=== PATIENT | female | born 1945 | race Caucasian/White ===

== ENCOUNTER 2017-01-02 18:26 | Inpatient (IN) | payer OTHER ==
[~2017-01-02] VITALS: Ht 160 cm; Wt 91.6 kg
--- NOTE | ~2017-01-02 | ST ---
[place], [place] EXERCISE STRESS TEST REPORT NAME: GENARO JOE [facility] #: [id number] UNIT #: [id number] ROOM: 512 DOCTOR: DIOGO TOLENTINO MD BIRTHDATE: [birth year] DOS: 01/03/2017 LEXISCAN STRESS EKG REPORT REFERRING PHYSICIAN: Dr. Harper. INDICATION: Chest pain. The patient underwent standard protocol Lexiscan stress. The patient's baseline EKG showed normal sinus rhythm with nonspecific ST-T wave changes. The patient's baseline heart rate is 63 beats per minute with a blood pressure of 128/64. The patient's peak heart rate was 79 with a blood pressure of 90/50. The patient was noted to have no anginal symptoms. The patient had rare PVCs in regard to arrhythmias and no ST changes were noted. SUMMARY OF FINDINGS: 1. Unremarkable Lexiscan stress. 2. Please see separate report for perfusion scan results. DIOGO TOLENTINO MD CM:STRESS:EXERCISE STRESS TEST REPORT [id number] DIOGO TOLENTINO MD
[~2017-01-02 18:26] MED LIST: ASPIR-TRIN325 MG PO; ASPIRIN81 M1 PO; CITALOPRAM20 MG PO; COREG12.5 M1 PO; DOXYCYCLINE100 MG PO; FLONASE ALLERG9.9 ML NAS; LISINOPRIL5 MG PO; NEURONTIN100 MG PO; NEURONTIN300 MG PO; NORCO 5-325 TA1 EACH PO; OMEPRAZOLE20 M2 PO; PREDNISONE10 MG PO; SIMVASTATIN40 MG PO; SYMBICORT1 AE1 PO; SYNTHROID25 MCG PO; TYLENOL325 M1 PO; VENTOLIN H0.09 MG/AC INH; VICODIN 5-3001 EACH PO; ZITHROMAX250 MG PO
[2017-01-02 19:00] LABS: BASO % 0.4 % (0.0-1.0); EOS # 0.3 10*3/uL (0.0-0.4); EOS % 4.7 % (1.0-4.0); HEMATOCRIT 38.9 % (37.0-47.0); HEMOGLOBIN 12.8 g/dl (12.0-16.0); LYMPH # 2.1 10*3/uL (1.3-4.4); LYMPH % 39.5 % (27.0-41.0); MEAN CELL VOLUME 89.6 fl (81.0-99.0); MEAN CORPUSCULAR HGB 29.5 pg (27.0-31.0); MEAN CORPUSCULAR HGB CONC 32.9 g/dl (33.0-37.0); MEAN PLATELET VOLUME 9.2 fl (9.6-12.3); MONO # 0.4 10*3/uL (0.1-1.0); NEUT # 2.6 10*3/uL (2.3-7.9); NEUT % 48.2 % (47.0-73.0); PLATELET COUNT AUTOMATED 138 10*3/uL (130-400); RED BLOOD COUNT 4.34 10*6/uL (4.10-5.10); RED CELL DISTRI WIDTH 12.7 % (0-14.5); WHITE BLOOD COUNT 5.3 10*3/uL (4.8-10.8)
[2017-01-02 19:04] VITALS: BP 139/79
[2017-01-02 19:11] VITALS: BP 139/79
[2017-01-02 19:11] LABS: PROTHROMBIN TIME 10.4 SECONDS (9.0-12.4)
[2017-01-02 19:18] LABS: ALBUMIN 3.6 gm/dl (3.1-4.5); ALKALINE PHOSPHATASE 65 U/L (45-117); BILIRUBIN, TOTAL 0.4 mg/dl (0.2-1.0); BUN 18 mg/dl (7-24); CARBON DIOXIDE 26 mmol/L (21-32); CHLORIDE 110 mmol/L (98-107); EST GLOM FILT AFRICAN AMERICAN 53 ml/min; MAGNESIUM 2.3 mg/dL (1.5-2.1); POTASSIUM 4.3 mmol/L (3.5-5.1); SGOT/AST 22 IU/L (3-35); SGPT/ALT 16 U/L (12-78); SODIUM 143 mmol/L (136-145); TOTAL PROTEIN 6.9 gm/dL (6.4-8.2)
[2017-01-02 19:19] LABS: TROPONIN I < 0.015 ng/ml (<0.045)
[2017-01-02 19:20] LABS: GLUCOSE 102 mg/dL (65-99)
[2017-01-02 22:15] VITALS: BP 137/69
[2017-01-02] MEDS ORDERED: TOPIRAMATE25 M3 PO (22:50)
[2017-01-02] MEDS ORDERED: PANTOPRAZOLE SO40 MG PO (22:52)
[2017-01-02] MEDS ORDERED: VITAMIN D32000 UNIT PO (22:54)
[2017-01-02 23:00] VITALS: BP 137/69
[2017-01-03] VITALS: BP 140/90
[2017-01-03 00:26] LABS: CPK 85 U/L (26-192)
[2017-01-03 00:28] LABS: TROPONIN I < 0.015 ng/ml (<0.045)
[2017-01-03 06:30] LABS: BASO % 0.3 % (0.0-1.0); EOS # 0.3 10*3/uL (0.0-0.4); EOS % 4.8 % (1.0-4.0); HEMATOCRIT 37.2 % (37.0-47.0); HEMOGLOBIN 12.4 g/dl (12.0-16.0); LYMPH # 2.3 10*3/uL (1.3-4.4); LYMPH % 35.1 % (27.0-41.0); MEAN CELL VOLUME 87.7 fl (81.0-99.0); MEAN CORPUSCULAR HGB 29.2 pg (27.0-31.0); MEAN CORPUSCULAR HGB CONC 33.3 g/dl (33.0-37.0); MEAN PLATELET VOLUME 8.9 fl (9.6-12.3); MONO # 0.4 10*3/uL (0.1-1.0); MONO % 6.6 % (3.0-9.0); NEUT # 3.5 10*3/uL (2.3-7.9); PLATELET COUNT AUTOMATED 120 10*3/uL (130-400); RED BLOOD COUNT 4.24 10*6/uL (4.10-5.10); RED CELL DISTRI WIDTH 12.5 % (0-14.5); WHITE BLOOD COUNT 6.5 10*3/uL (4.8-10.8)
[2017-01-03 06:34] LABS: CPK 74 U/L (26-192); TROPONIN I < 0.015 ng/ml (<0.045)
[2017-01-03 06:50] LABS: ALBUMIN 3.4 gm/dl (3.1-4.5); MAGNESIUM 2.3 mg/dL (1.5-2.1); PHOSPHOROUS 3.9 mg/dL (2.5-4.9); POTASSIUM 3.6 mmol/L (3.5-5.1)
[2017-01-03 06:54] LABS: PROTHROMBIN TIME 10.4 SECONDS (9.0-12.4)
[2017-01-03 06:58] LABS: HEMOGLOBIN A1c 5.7 % (4.8-5.6)
[2017-01-03 07:01] LABS: BILIRUBIN, TOTAL 0.4 mg/dl (0.2-1.0); THYROID STIM HORMONE (HS) 3.92 uIU/ml (0.358-4.75); TOTAL PROTEIN 6.6 gm/dL (6.4-8.2)
[2017-01-03 07:51] LABS: FOLIC ACID 13.07 ng/mL (>5.38); VITAMIN D, 25-HYDROXY 37.2 ng/mL (30-100)
[2017-01-03 08:00] VITALS: BP 120/67
[2017-01-03 12:00] VITALS: BP 98/56
[2017-01-03 16:00] VITALS: BP 119/68
[2017-01-03 16:15] LABS: CPK 81 U/L (26-192)
[2017-01-03 16:22] LABS: TROPONIN I < 0.015 ng/ml (<0.045)
[2017-01-03] MEDS ORDERED: LISINOPRIL2.5 MG PO (17:40)
== END 2017-01-03 18:45 | disposition home or self-care (01) | DRG 206 ==
LOC: ED 18:26 → 5E 20:24 → EDHOLD 20:24 → 5E 20:58
PROVIDERS: Registered Nurse; Student in an Organized Health Care Education/Training Program
PROC: 4A02XM4 Measurement of Cardiac Total Activity, External Approach (ICD-10-PCS; principal; 2017-01-03)
DX: M94.0 Chondrocostal junction syndrome [Tietze] (principal); N18.3 Chronic kidney disease, stage 3 (moderate); E83.41 Hypermagnesemia; I25.810 Atherosclerosis of coronary artery bypass graft(s) without angina pectoris; J45.909 Unspecified asthma, uncomplicated; I12.9 Hypertensive chronic kidney disease with stage 1 through stage 4 chronic kidney disease, or unspecified chronic kidney disease; E78.5 Hyperlipidemia, unspecified; K21.9 Gastro-esophageal reflux disease without esophagitis; E03.9 Hypothyroidism, unspecified; M19.90 Unspecified osteoarthritis, unspecified site; Z95.1 Presence of aortocoronary bypass graft; Z90.49 Acquired absence of other specified parts of digestive tract; Z87.891 Personal history of nicotine dependence; Z80.9 Family history of malignant neoplasm, unspecified; Z82.49 Family history of ischemic heart disease and other diseases of the circulatory system; Z88.8 Allergy status to other drugs, medicaments and biological substances; Z91.041 Radiographic dye allergy status; Z91.040 Latex allergy status; Z79.1 Long term (current) use of non-steroidal anti-inflammatories (NSAID); Z79.82 Long term (current) use of aspirin; Z79.899 Other long term (current) drug therapy; Z95.0 Presence of cardiac pacemaker

== ENCOUNTER → 2017-02-23 | Outpatient (CLI) | payer OTHER ==
[~2017-02-23] MED LIST changes: +LISINOPRIL2.5 MG PO; +PANTOPRAZOLE SO40 MG PO; +TOPIRAMATE25 M3 PO; +VITAMIN D32000 UNIT PO
== END | disposition home or self-care (01) ==
LOC: NM 10:00
DX: M17.11 Unilateral primary osteoarthritis, right knee (principal)

== ENCOUNTER → 2017-03-30 | Outpatient (CLI) | payer OTHER | END | disposition home or self-care (01) | LOC: RAD 12:27 | DX: M47.897 Other spondylosis, lumbosacral region (principal); M47.896 Other spondylosis, lumbar region; M46.07 Spinal enthesopathy, lumbosacral region ==

== ENCOUNTER 2017-08-01 16:19 | Emergency (ER) | payer OTHER ==
[~2017-08-01] VITALS: Ht 162.5 cm; Wt 90.7 kg
== END 2017-08-01 16:43 | disposition home or self-care (01) ==
LOC: ED 16:19
DX: T22.112A Burn of first degree of left forearm, initial encounter (principal); Z91.040 Latex allergy status; Z91.041 Radiographic dye allergy status; Z88.8 Allergy status to other drugs, medicaments and biological substances; Z79.82 Long term (current) use of aspirin; Z79.899 Other long term (current) drug therapy; Z95.1 Presence of aortocoronary bypass graft; Z90.49 Acquired absence of other specified parts of digestive tract; Z87.891 Personal history of nicotine dependence; X13.1XXA Other contact with steam and other hot vapors, initial encounter; Y93.G3 Activity, cooking and baking; Y92.89 Other specified places as the place of occurrence of the external cause; Y99.8 Other external cause status

== ENCOUNTER 2017-09-17 17:18 | Emergency (ER) | payer OTHER ==
[~2017-09-17] VITALS: Wt 90.7 kg
[2017-09-17] MEDS ORDERED: PREDNISONE10 MG PO (17:33)
[2017-09-17] MEDS ORDERED: TOLTERODINE TART4 M1 PO (17:33)
[2017-09-17 17:59] LABS: BASO % 0.3 % (0.0-1.0); EOS % 0.4 % (1.0-4.0); HEMATOCRIT 39.2 % (37.0-47.0); HEMOGLOBIN 13.1 g/dl (12.0-16.0); LYMPH # 1.5 10*3/uL (1.3-4.4); LYMPH % 19.2 % (27.0-41.0); MEAN CELL VOLUME 88.9 fl (81.0-99.0); MEAN CORPUSCULAR HGB 29.7 pg (27.0-31.0); MEAN CORPUSCULAR HGB CONC 33.4 g/dl (33.0-37.0); MEAN PLATELET VOLUME 9.3 fl (9.6-12.3); MONO # 0.4 10*3/uL (0.1-1.0); MONO % 5.3 % (3.0-9.0); NEUT # 5.8 10*3/uL (2.3-7.9); NEUT % 74.2 % (47.0-73.0); PLATELET COUNT AUTOMATED 177 10*3/uL (130-400); RED BLOOD COUNT 4.41 10*6/uL (4.10-5.10); RED CELL DISTRI WIDTH 12.5 % (0-14.5); WHITE BLOOD COUNT 7.8 10*3/uL (4.8-10.8)
[2017-09-17 18:11] LABS: CREATININE 1.15 mg/dL (0.55-1.02); POTASSIUM 3.8 mmol/L (3.5-5.1)
[2017-09-17] MEDS ORDERED: VIBRAMYCIN100 MG PO (20:44)
[2017-09-17] MEDS ORDERED: HYCODAN/HYDROMET5 ML PO (20:44)
== END 2017-09-17 21:03 | disposition home or self-care (01) ==
LOC: ED 17:18
PROVIDERS: Physician Assistant
DX: J40 Bronchitis, not specified as acute or chronic (principal); Z87.891 Personal history of nicotine dependence; Z95.1 Presence of aortocoronary bypass graft; Z90.49 Acquired absence of other specified parts of digestive tract; Z98.890 Other specified postprocedural states; Z95.0 Presence of cardiac pacemaker; Z79.82 Long term (current) use of aspirin; Z79.899 Other long term (current) drug therapy; Z91.040 Latex allergy status; Z88.8 Allergy status to other drugs, medicaments and biological substances

== ENCOUNTER 2018-02-04 13:15 | Emergency (ER) | payer OTHER ==
[~2018-02-04] VITALS: Wt 72.6 kg
[~2018-02-04 13:15] MED LIST changes: +HYCODAN/HYDROMET5 ML PO; +TOLTERODINE TART4 M1 PO; +VIBRAMYCIN100 MG PO
[2018-02-04 13:51] LABS: BASO % 0.5 % (0.0-1.0); EOS # 0.3 10*3/uL (0.0-0.4); EOS % 5.3 % (1.0-4.0); HEMATOCRIT 39.2 % (37.0-47.0); HEMOGLOBIN 12.8 g/dl (12.0-16.0); LYMPH # 2.2 10*3/uL (1.3-4.4); LYMPH % 34.1 % (27.0-41.0); MEAN CELL VOLUME 90.3 fl (81.0-99.0); MEAN CORPUSCULAR HGB 29.5 pg (27.0-31.0); MEAN CORPUSCULAR HGB CONC 32.7 g/dl (33.0-37.0); MONO # 0.4 10*3/uL (0.1-1.0); MONO % 6.9 % (3.0-9.0); NEUT # 3.4 10*3/uL (2.3-7.9); PLATELET COUNT AUTOMATED 165 10*3/uL (130-400); RED BLOOD COUNT 4.34 10*6/uL (4.10-5.10); RED CELL DISTRI WIDTH 12.3 % (0-14.5); WHITE BLOOD COUNT 6.4 10*3/uL (4.8-10.8)
[2018-02-04 14:05] LABS: ALBUMIN 3.7 gm/dl (3.1-4.5); CREATININE 1.32 mg/dL (0.55-1.02); POTASSIUM 4.1 mmol/L (3.5-5.1)
[2018-02-04] MEDS ORDERED: VIBRAMYCIN100 MG PO (15:40)
[2018-02-04] MEDS ORDERED: PREDNISONE20 M1 PO (15:40)
[2018-02-04] MEDS ORDERED: DUONEB 3 MG/3 ML3 M1 INH (15:40)
== END 2018-02-04 15:45 | disposition home or self-care (01) ==
LOC: ED 13:15
PROVIDERS: Emergency Medicine
DX: J44.1 Chronic obstructive pulmonary disease with (acute) exacerbation (principal); I12.9 Hypertensive chronic kidney disease with stage 1 through stage 4 chronic kidney disease, or unspecified chronic kidney disease; N18.9 Chronic kidney disease, unspecified; K21.9 Gastro-esophageal reflux disease without esophagitis; E78.5 Hyperlipidemia, unspecified; E03.9 Hypothyroidism, unspecified; I25.10 Atherosclerotic heart disease of native coronary artery without angina pectoris; Z98.890 Other specified postprocedural states; Z95.1 Presence of aortocoronary bypass graft; Z90.49 Acquired absence of other specified parts of digestive tract; Z79.82 Long term (current) use of aspirin; Z79.899 Other long term (current) drug therapy; Z91.040 Latex allergy status; Z88.8 Allergy status to other drugs, medicaments and biological substances

== ENCOUNTER 2019-11-12 05:05 | Inpatient (IN) | payer OTHER ==
[2019-11-12] VITALS (8 sets, daily range): BP systolic 116–152; BP diastolic 66–87
[~2019-11-12] VITALS: Ht 154.9 cm; Wt 88.5 kg
[~2019-11-12 05:05] MED LIST changes: +DUONEB 3 MG/3 ML3 M1 INH; +PREDNISONE20 M1 PO
[2019-11-12 05:33] LABS: BASO % 0.1 % (0.0-1.0); EOS # 0.2 10*3/uL (0.0-0.4); EOS % 1.7 % (1.0-4.0); HEMATOCRIT 44.2 % (37.0-47.0); HEMOGLOBIN 14.4 g/dl (12.0-16.0); LYMPH # 1.9 10*3/uL (1.3-4.4); LYMPH % 19.6 % (27.0-41.0); MEAN CORPUSCULAR HGB 30.6 pg (27.0-31.0); MEAN CORPUSCULAR HGB CONC 32.6 g/dl (33.0-37.0); MEAN PLATELET VOLUME 9.1 fl (9.6-12.3); MONO # 0.6 10*3/uL (0.1-1.0); NEUT % 71.6 % (47.0-73.0); PLATELET COUNT AUTOMATED 186 10*3/uL (130-400); RED CELL DISTRI WIDTH 12.5 % (0-14.5); WHITE BLOOD COUNT 9.8 10*3/uL (4.8-10.8)
[2019-11-12 05:41] LABS: ACT PARTIAL THROMBO TIME 23.4 SECONDS (20.0-32.1); INTERNATIONAL NORM RATIO 0.9 (2.0-3.5)
[2019-11-12 05:44] LABS: ALBUMIN 3.7 gm/dl (3.1-4.5); CREATININE 1.18 mg/dL (0.55-1.02); POTASSIUM 3.9 mmol/L (3.5-5.1); TOTAL PROTEIN 7.1 gm/dL (6.4-8.2); TROPONIN I 0.041 ng/ml (<0.045)
--- NOTE | 2019-11-12 07:15 | NUR ---
REPORT RECEIVED FROM KRISTIN SCHULTZ AT THIS TIME. PT AWAKE IN BED. PT DENIES PAIN OR DISCOMFORT. PT ASSISTED TO AMBULATE TO BATHROOM AT THIS TIME WITHOUT INCIDENT. UPON RETURNING FROM RESTROOM PTS SPO2 WAS 92% ON RA. PT REQUEST TO HAVE O2 CONTINUED FOR COMFORT AT THIS TIME. O2 VIA NC CONTINUED AT 2L WITH SPO2 READING OF 94%. FAMILY AT BEDSIDE. WILL CONTINUE TO MONITOR.
--- NOTE | 2019-11-12 11:20 | NUR ---
DR TOLENTINO'S OFFICE NOTIFIED OF CONSULT AT THIS TIME.
--- NOTE | 2019-11-12 13:39 | NUR ---
DR. ENRIQUE ON FLOOR AWARE OF CONSULT. MADE AWARE PT WAS STILL IN ER.
--- NOTE | 2019-11-12 13:45 | NUR ---
PER DR. SILVER PT NEEDS HEART MONITOR. DR. WHITNEY MADE AWARE.
[2019-11-12] MEDS ORDERED: LISINOPRIL2.5 MG PO (15:32)
[2019-11-12] MEDS ORDERED: ELIQUIS2.5 M1 PO (15:33)
[2019-11-12] MEDS ORDERED: TUSSIN100 MG/51 PO (15:34)
--- NOTE | 2019-11-12 16:20 | NUR ---
RESTING IN BED. RESP-EASY AND REGULAR. NO C/O AT THIS TIME. ASSISTED TO BATHROOM AND BACK. CALL LIGHT IN REACH. SEE SHIFT ASSESSMENT.
[2019-11-12] MEDS ORDERED: VITAMIN B121000 MC1 PO (17:29)
[2019-11-13] VITALS: BP 157/72
--- NOTE | 2019-11-13 05:57 | NUR ---
TYLENOL GIVEN PER ORDER FOR HEADACHE RATED "7" SEE MAR.
--- NOTE | 2019-11-13 06:33 | NUR ---
24 HR chart check completed.
[2019-11-13 06:52] LABS: BASO % 0.1 % (0.0-1.0); HEMATOCRIT 42.5 % (37.0-47.0); HEMOGLOBIN 14.1 g/dl (12.0-16.0); LYMPH # 0.7 10*3/uL (1.3-4.4); LYMPH % 6.1 % (27.0-41.0); MEAN CELL VOLUME 93.6 fl (81.0-99.0); MEAN CORPUSCULAR HGB 31.1 pg (27.0-31.0); MEAN CORPUSCULAR HGB CONC 33.2 g/dl (33.0-37.0); MEAN PLATELET VOLUME 9.4 fl (9.6-12.3); MONO # 0.5 10*3/uL (0.1-1.0); MONO % 4.6 % (3.0-9.0); NEUT # 10.1 10*3/uL (2.3-7.9); NEUT % 88.3 % (47.0-73.0); PLATELET COUNT AUTOMATED 180 10*3/uL (130-400); RED BLOOD COUNT 4.54 10*6/uL (4.10-5.10); RED CELL DISTRI WIDTH 12.6 % (0-14.5); WHITE BLOOD COUNT 11.4 10*3/uL (4.8-10.8)
--- NOTE | 2019-11-13 06:53 | NUR ---
TYLENOL HELPING WITH HEADACHE PAIN PER PT.
[2019-11-13 06:57] LABS: BUN 26 mg/dl (7-24); CHLORIDE 106 mmol/L (98-107); CHOLESTEROL 174 mg/dL (<200); CREATININE 1.01 mg/dL (0.55-1.02); HDL CHOLESTEROL 72 mg/dl (40-60); LDL CHOLESTEROL 78 mg/dL (9-159); POTASSIUM 3.9 mmol/L (3.5-5.1); SODIUM 140 mmol/L (136-145); TRIGLYCERIDES 121 mg/dl (<150); VLDL CHOLESTEROL 24 mg/dL (6-40)
[2019-11-13 07:04] LABS: THYROID STIM HORMONE (HS) 0.459 uIU/ml (0.358-4.75)
--- NOTE | 2019-11-13 07:56 | NUR ---
PHYSICAL THERAPY Screen received pt admit from home with COPD and NSTEMI please consult PT as medically appropriate and if pt has a decline in functional status below baseline, thank you. Aimee Cedeno PT
[2019-11-13 08:00] VITALS: BP 128/70
--- NOTE | 2019-11-13 08:03 | NUR ---
Nursing screen received and chart reviewed. Patient admitted from home with COPD. If patient has a decline in ADLs, functional mobility, or transfers, please send OT orders. Karla Hussein, OTR/L
[2019-11-13 08:07] LABS: VITAMIN D, 25-HYDROXY 59.8 ng/mL (30-100)
[2019-11-13 12:00] VITALS: BP 136/78
--- NOTE | 2019-11-13 14:48 | NUR ---
Commercial Relief Driver in to talk to patient. Patient states lives at HOME with SISITER. There are NO steps in the home. Physician: KELLY [facility]: [facility] Home health services: NONE Patient's level of ADLs: INDEPENDENT Patient has working utilities: YES DME: SHOWER CHAIR, RAMPS, HAND RAILS, CPAP BUT STATES SHE DOES NOT USE IT Follow-up physician's appointment after d/c: WILL BE MADE BY HOSPITALIST NURSE DIRECTOR ON DISCHARGE Does patient want to access PORTAL?: NO Discharge plan PT LIVES AT HOME WITH HER SISTER AND IS INDEPENDENT IN HER CARE. DENIES SHE WILL HAVE NEEDS ON DISCHARGE, SISTER IN ROOM AND AGREES. PLAN IS TO RETURN HOME WHEN MEDICALLY STABLE. WILL CONTINUE TO FOLLOW. STATES SHE WILL HAVE A RIDE HOME. [place]
[2019-11-13 16:00] VITALS: BP 144/71
--- NOTE | 2019-11-13 18:59 | NUR ---
TYLENOL FOR HEADACHE ".
--- NOTE | 2019-11-13 19:19 | NUR ---
PT WITH 8 BEAT RUN OF V-TACH. PLACED CALL TO [facility] ANSWERING SERVICE. AWAITING CALL BACK. PT WITHOUT SYMPTOMS AND STABLE.
[2019-11-13 20:00] VITALS: BP 130/63
--- NOTE | 2019-11-13 20:00 | NUR ---
TYLENOL EFFECTIVE FOR H/A PAIN PER PT.
--- NOTE | 2019-11-13 20:52 | NUR ---
24 HR chart check completed.
[2019-11-14] VITALS: BP 128/63
--- NOTE | 2019-11-14 02:40 | NUR ---
SLEEPING, NO ACUTE DISTRESS NOTED.
[2019-11-14 08:00] VITALS: BP 125/64
--- NOTE | 2019-11-14 08:32 | NUR ---
NOTIFIED DR WHITNEY THAT PT HAD AN 8 BEAT RUN OF V-TACH LAST NIGHT PRIOR TO ME LEAVING AND PER [facility]IOLOG[facility] NEVER RETURNED MY PHONECALL. ALSO DR ROSENBERG NOTIFIED.
--- NOTE | 2019-11-14 11:22 | NUR ---
PT LIVES AT HOME WITH HER SISTER AND IS INDEPENDENT IN HER CARE. STATES SHE WILL RETURN HOME WITH SISTER ON DISCHARGE. WILL CONTINUE TO FOLLOW.
[2019-11-14 12:00] VITALS: BP 120/60
[2019-11-14 16:00] VITALS: BP 132/57
[2019-11-14 20:00] VITALS: BP 140/69
--- NOTE | 2019-11-14 21:33 | NUR ---
TYLENOL GIVEN FOR HEADACHE PATIENT STATED "IT'S JUST STARTING."
--- NOTE | 2019-11-14 22:25 | NUR ---
TYLENOL EFFECTIVE FOR HEADACHE PAIN PER PT.
--- NOTE | 2019-11-14 22:34 | NUR ---
24 HR chart check completed.
[2019-11-15] VITALS: BP 152/76
--- NOTE | 2019-11-15 07:30 | NUR ---
VITALS STABLE. A&O X3, JONNA, PT IS PLEASANT AND COOPERATIVE. CAPILLARY REFILL <3 SECONDS, SKIN TURGOR NON TENTING. NO COMPLAINTS OF PAIN AT THIS TIME. + PERIPHERAL PULSES. PT SKIN IS WARM DRY AND INTACT, WITH A LARGE ECCHYMOTIC AREA ON HER ABDOMEN IN THE LLQ AND TWO QUARTER SIZED BRUISES ON HER RLQ. HEART SOUNDS ARE NORMAL, RATE OF 66, REGULAR AND STRONG. LUNGS ARE DIMINISHED IN BILATERAL BASES, OTHERWISE CLEAR THROUGHOUT, RATE OF 20, PO2 95% ON 2L NASAL CANNULA. BOWEL SOUNDS X4. ABDOMEN IS SOFT, NON DISTENDED, NON TENDER. LEFT ANTECUBITAL IV SITE IS DRY AND INTACT, NO S/S OF INFECTION. NO OTHER COMPLAINTS AT THIS TIME, WILL CONTINUE TO MONITOR. OMER QUIJANO
[2019-11-15 08:00] VITALS: BP 156/72
--- NOTE | 2019-11-15 09:00 | NUR ---
case management visits with patient, she states she will return home when medically stable and denies any home needs, case management will follow
--- NOTE | 2019-11-15 09:50 | NUR ---
Birgit Hampton from [place] called to see if pt had eaten or had any caffeine. Pt did have regular diet ordered. I checked with pt. Pt states she did drink iced tea but no coffee. Notified Birgit of this.
--- NOTE | 2019-11-15 10:12 | NUR ---
PT INSTRUCTED SHE IS NPO FOR TESTING. OMER AMIN CARMEN
[2019-11-15 11:58] VITALS: BP 140/66
--- NOTE | 2019-11-15 12:48 | NUR ---
PT TO X RAY VIA WHEELCHAIR, CONDITION STABLE. OMER AMIN [facility]
--- NOTE | 2019-11-15 13:30 | NUR ---
INFORMED CONSENT OBTAINED FOR LEXISCAN NUCLEAR STRESS TEST WITH DR. SILVER. RESTING EKG NSR WITH A RESTING HR OF 65 WITH BP OF 130/74. HAS INVERTED T WAVES IN LEADS II,III,AVF AND V3-V6. LUNGS CLEAR WITH SPO2 OF 94% ON ROOM AIR. PT COMPLETED A 1:00 LEXISCAN PROTOCOL RECEIVING LEXISCAN 0.4 MG IV OVER 10 SECONDS. HAD NO CHEST PAIN BUT DID C/O "WEIRD FEELING AND HEAD FUZZY" THAT SUBSIDED IN RECOVERY. EKG NONDIAGNOSTIC WITH NO CHANGES. HAD A PEAK HR OF 88 WITH BP OF 120/60. LAST RECOVERY HR OF 78 WITH BP OF 110/62. AWAITING SCANNING IN STABLE CONDITION.
--- NOTE | 2019-11-15 15:13 | NUR ---
Notified Keya Delgado NP regarding orthostatic bp results.
--- NOTE | 2019-11-15 15:58 | NUR ---
Up walking with respiratory for home o2 assessment.
[2019-11-15 16:00] VITALS: BP 154/72
--- NOTE | 2019-11-15 16:00 | NUR ---
HOME O2 ASSESSMENT ROOM AIR AT REST: SPO2 86% HR 94 RR 24 BP 140/68 2L NC AT REST: SPO2 94% 2L NC WITH AMBULATION: SPO2 90-93% RECOVERY ON 2L NC: SPO2 96% HR 94 RR 24 BP 154/72 PT. REQUIRED 2L NC AT REST AND WITH AMBULATION TO KEEP SPO2 > 88%. RN NOTIFIED.
[2019-11-15 20:00] VITALS: BP 148/79
--- NOTE | 2019-11-15 20:22 | NUR ---
TYLENOL ADMINISTERED FOR PT C/O HEADACHE RATED A 6/10. WILL CONTINUE TO MONITOR.
--- NOTE | 2019-11-15 21:30 | NUR ---
PT STATES TYLENOL WAS EFFECTIVE IN RELIEVING HEADACHE.
[2019-11-16] VITALS: BP 151/93
--- NOTE | 2019-11-16 03:18 | NUR ---
24 HOUR CHART CHECK COMPLETE.
[2019-11-16 06:19] LABS: BASO % 0.2 % (0.0-1.0); EOS % 0.1 % (1.0-4.0); HEMATOCRIT 37.8 % (37.0-47.0); HEMOGLOBIN 12.1 g/dl (12.0-16.0); LYMPH # 0.7 10*3/uL (1.3-4.4); LYMPH % 5.8 % (27.0-41.0); MEAN CELL VOLUME 95.2 fl (81.0-99.0); MEAN CORPUSCULAR HGB 30.5 pg (27.0-31.0); MEAN PLATELET VOLUME 9.5 fl (9.6-12.3); MONO # 0.5 10*3/uL (0.1-1.0); MONO % 4.6 % (3.0-9.0); NEUT # 9.8 10*3/uL (2.3-7.9); NEUT % 87.1 % (47.0-73.0); PLATELET COUNT AUTOMATED 141 10*3/uL (130-400); RED BLOOD COUNT 3.97 10*6/uL (4.10-5.10); RED CELL DISTRI WIDTH 12.4 % (0-14.5); WHITE BLOOD COUNT 11.2 10*3/uL (4.8-10.8)
[2019-11-16 06:41] LABS: ALBUMIN 2.9 gm/dl (3.1-4.5); ALKALINE PHOSPHATASE 44 U/L (45-117); BUN 27 mg/dl (7-24); CHLORIDE 107 mmol/L (98-107); CREATININE 0.93 mg/dL (0.55-1.02); SGOT/AST 18 IU/L (3-35); SGPT/ALT 31 U/L (12-78); SODIUM 139 mmol/L (136-145); TOTAL PROTEIN 5.7 gm/dL (6.4-8.2)
[2019-11-16 12:00] VITALS: BP 146/74
[2019-11-16 16:00] VITALS: BP 146/74
[2019-11-16 20:00] VITALS: BP 166/76
[2019-11-17] VITALS: BP 168/83
[2019-11-17 06:51] LABS: MEAN CELL VOLUME 95.2 fl (81.0-99.0); MEAN CORPUSCULAR HGB 30.1 pg (27.0-31.0); MEAN CORPUSCULAR HGB CONC 31.6 g/dl (33.0-37.0); MEAN PLATELET VOLUME 9.6 fl (9.6-12.3); PLATELET COUNT AUTOMATED 149 10*3/uL (130-400); RED BLOOD COUNT 3.99 10*6/uL (4.10-5.10); RED CELL DISTRI WIDTH 12.2 % (0-14.5); WHITE BLOOD COUNT 12.1 10*3/uL (4.8-10.8)
[2019-11-17 07:22] LABS: ALBUMIN 2.9 gm/dl (3.1-4.5); BUN 28 mg/dl (7-24); CHLORIDE 105 mmol/L (98-107); SGOT/AST 17 IU/L (3-35); SGPT/ALT 42 U/L (12-78); SODIUM 139 mmol/L (136-145)
[2019-11-17 07:24] LABS: ALKALINE PHOSPHATASE 36 U/L (45-117); TOTAL PROTEIN 5.8 gm/dL (6.4-8.2)
[2019-11-17 07:47] LABS: PLATELET SUFFICIENCY NORMAL (NORMAL); TOTAL CELLS COUNTED 100 #CELLS
[2019-11-17 08:00] VITALS: BP 150/76
[2019-11-17 12:00] VITALS: BP 127/54
[2019-11-17] MEDS ORDERED: ZITHROMAX250 MG PO (14:33)
[2019-11-17] MEDS ORDERED: PREDNISONE10 MG PO (14:33)
--- NOTE | 2019-11-17 14:35 | NUR ---
BIPAP CHARTING MARKED ON WRONG PATIENT
[2019-11-17 16:00] VITALS: BP 151/72
--- NOTE | 2019-11-17 17:09 | NUR ---
PT RESTING IN BED WITH EYES CLOSED. NO DISTRESS NOTED.RESP EASY ON 2LNC.STABLE AT THIS TIME.WILL CONTINUE TO MONITOR .CALL LIGHT IN REACH.
--- NOTE | 2019-11-17 17:30 | NUR ---
NOTIFIED DR IRIZARRY O2 HAD ARRIVED FROM [facility]. PT TO BE D/C IN AM PER DR IRIZARRY. NOTIFIED PT'S SISTER. PT HOME O2 TANK CURRENTLY @ BEDSIDE.
--- NOTE | 2019-11-17 19:45 | NUR ---
PATIENT RESTING WITH FAMILY AT BEDSIDE. DENIES NEEDS AT THIS TIME. BED IN LOWEST POSITION, CALL LIGHT IN REACH
[2019-11-17 20:00] VITALS: BP 162/80
[2019-11-18] VITALS: BP 156/86
[2019-11-18 06:15] LABS: HEMATOCRIT 39.6 % (37.0-47.0); HEMOGLOBIN 12.4 g/dl (12.0-16.0); MEAN CELL VOLUME 97.3 fl (81.0-99.0); MEAN CORPUSCULAR HGB 30.5 pg (27.0-31.0); MEAN CORPUSCULAR HGB CONC 31.3 g/dl (33.0-37.0); MEAN PLATELET VOLUME 9.6 fl (9.6-12.3); PLATELET COUNT AUTOMATED 138 10*3/uL (130-400); RED BLOOD COUNT 4.07 10*6/uL (4.10-5.10); RED CELL DISTRI WIDTH 12.4 % (0-14.5); WHITE BLOOD COUNT 13.5 10*3/uL (4.8-10.8)
[2019-11-18 06:42] LABS: BUN 31 mg/dl (7-24); CHLORIDE 107 mmol/L (98-107); CREATININE 0.99 mg/dL (0.55-1.02)
[2019-11-18 06:48] LABS: POTASSIUM 5.5 mmol/L (3.5-5.1); SODIUM 141 mmol/L (136-145)
[2019-11-18 07:08] LABS: TOTAL CELLS COUNTED 100 #CELLS
[2019-11-18 07:09] LABS: OVALOCYTES FEW; PLATELET SUFFICIENCY NORMAL (NORMAL)
--- NOTE | 2019-11-18 07:30 | NUR ---
VS STABLE. A&O X3, JONNA, + PERIPHERAL PULSES. CAPILLARY REFILL <3 SECONDS, SKIN TURGOR NON TENTING. NO COMPLAINTS OF PAIN AT THIS TIME. SKIN IS PINK WARM AND DRY WITH A LARGE ECCHYMOTIC AREA IN HER LLQ. HEART SOUNDS ARE NORMAL, RATE OF 70, STRONG AND REGULAR. LUNG SOUNDS HAVE WHEEZING ON EXPIRATION, RATE OF 18, NON LABORED, PO2 95% ON 2L NASAL CANNULA. BOWEL SOUNDS X4, ABDOMEN SOFT, NON DISTENDED, NON TENDER. RIGIHT HAND IV SITE IS DRY AND INTACT, NO S/S OF INFECTION. NO OTHER COMPLAINTS AT THIS TIME, WILL CONTINUE TO MONITOR. OMER AMIN [facility]
[2019-11-18 08:00] VITALS: BP 150/72
[2019-11-18 08:53] LABS: BUN 29 mg/dl (7-24); CHLORIDE 107 mmol/L (98-107); CREATININE 0.89 mg/dL (0.55-1.02); SODIUM 141 mmol/L (136-145)
[2019-11-18 09:00] LABS: POTASSIUM 4.3 mmol/L (3.5-5.1)
[2019-11-18] MEDS ORDERED: PROAIR HFA8.5 GM INH (09:20)
[2019-11-18] MEDS ORDERED: SYMB160 INH (09:20)
[2019-11-18] MEDS ORDERED: TUSSIN100 MG/51 PO (09:21)
--- NOTE | 2019-11-18 10:38 | NUR ---
PT STATES "I HAVE A HEADACHE FROM COUGHING, ITS A 5/10, THAT I WOULD LIKE TYLENOL FOR." GIVEN TYLENOL 650 MG PO. WILL CONTINUE TO MONITOR. OMER REDDY
--- NOTE | 2019-11-18 11:10 | NUR ---
Discharge instructions reviewed with patient/family. Patient receptive and verbalizes understanding. Follow-up care arranged. Written instructions given to patient/family. [place] DISCONTINUED. PT TAKEN OFF FLOOR BY WHEELCHAIR WITH HOME OXYGEN TANK PRESENT. LIBORIO BAUMANN
== END 2019-11-18 11:10 | disposition home or self-care (01) | DRG 280 ==
LOC: ED 05:05 → EDHOLD 06:48 → 5E 06:48
PROVIDERS: Emergency Medicine; Family Medicine; Internal Medicine; Registered Nurse; ADMIT Internal Medicine
PROC: 4A02XM4 Measurement of Cardiac Total Activity, External Approach (ICD-10-PCS; principal; 2019-11-13)
PROC: 3E073KZ Introduction of Other Diagnostic Substance into Coronary Artery, Percutaneous Approach (ICD-10-PCS; principal; 2019-11-13)
DX: I13.0 Hypertensive heart and chronic kidney disease with heart failure and stage 1 through stage 4 chronic kidney disease, or unspecified chronic kidney disease (principal); I21.4 Non-ST elevation (NSTEMI) myocardial infarction; I50.33 Acute on chronic diastolic (congestive) heart failure; J96.00 Acute respiratory failure, unspecified whether with hypoxia or hypercapnia; J44.1 Chronic obstructive pulmonary disease with (acute) exacerbation; D68.69 Other thrombophilia; I47.2 Ventricular tachycardia; I24.8 Other forms of acute ischemic heart disease; I25.700 Atherosclerosis of coronary artery bypass graft(s), unspecified, with unstable angina pectoris; N18.3 Chronic kidney disease, stage 3 (moderate); R10.13 Epigastric pain; E78.5 Hyperlipidemia, unspecified; M19.90 Unspecified osteoarthritis, unspecified site; K21.9 Gastro-esophageal reflux disease without esophagitis; I48.91 Unspecified atrial fibrillation; E03.9 Hypothyroidism, unspecified; I25.10 Atherosclerotic heart disease of native coronary artery without angina pectoris; E66.9 Obesity, unspecified; S30.1XXA Contusion of abdominal wall, initial encounter; X58.XXXA Exposure to other specified factors, initial encounter; Y93.89 Activity, other specified; Y92.89 Other specified places as the place of occurrence of the external cause; Y99.8 Other external cause status; Z95.1 Presence of aortocoronary bypass graft; Z88.8 Allergy status to other drugs, medicaments and biological substances; Z91.040 Latex allergy status; Z79.899 Other long term (current) drug therapy; Z79.82 Long term (current) use of aspirin; Z79.4 Long term (current) use of insulin; Z93.3 Colostomy status; Z90.49 Acquired absence of other specified parts of digestive tract; Z87.891 Personal history of nicotine dependence; Z82.49 Family history of ischemic heart disease and other diseases of the circulatory system; Z68.36 Body mass index [BMI] 36.0-36.9, adult; Z95.810 Presence of automatic (implantable) cardiac defibrillator

== ENCOUNTER → 2019-12-31 | Outpatient (CLI) | payer OTHER ==
[~2019-12-31] MED LIST changes: +ELIQUIS2.5 M1 PO; +PROAIR HFA8.5 GM INH; +SYMB160 INH; +TUSSIN100 MG/51 PO; +VITAMIN B121000 MC1 PO
== END | disposition home or self-care (01) ==
LOC: RESCLI 12:56
DX: R06.02 Shortness of breath (principal)

== ENCOUNTER → 2020-04-15 | Outpatient (CLI) | payer OTHER | END | disposition home or self-care (01) | LOC: RAD 10:13 | DX: M47.816 Spondylosis without myelopathy or radiculopathy, lumbar region (principal); M47.817 Spondylosis without myelopathy or radiculopathy, lumbosacral region; M41.86 Other forms of scoliosis, lumbar region; M48.061 Spinal stenosis, lumbar region without neurogenic claudication ==

== ENCOUNTER → 2020-08-24 | Outpatient (CLI) | payer OTHER | END | disposition home or self-care (01) | LOC: COVID19 15:18 | PROVIDERS: ATTEND Physician Assistant Medical | DX: R05 Cough (principal); J01.90 Acute sinusitis, unspecified; Z20.828 Contact with and (suspected) exposure to other viral communicable diseases ==

== ENCOUNTER → 2021-08-20 | Outpatient (CLI) | payer OTHER | END | disposition home or self-care (01) | LOC: COVID19 15:02 | PROVIDERS: ATTEND Podiatrist Foot & Ankle Surgery | DX: Z11.52 Encounter for screening for COVID-19 (principal) ==

== ENCOUNTER 2021-12-25 21:15 | Emergency (ER) | payer OTHER ==
[~2021-12-25] VITALS: Ht 162.6 cm; Wt 95.6 kg
[2021-12-25 22:00] LABS: HEMATOCRIT 37.4 % (37.0-47.0); MEAN CELL VOLUME 94.9 fl (81.0-99.0); MEAN CORPUSCULAR HGB CONC 32.6 g/dl (33.0-37.0); MEAN PLATELET VOLUME 9.3 fl (9.6-12.3); PLATELET COUNT AUTOMATED 158 10*3/uL (130-400); RED BLOOD COUNT 3.94 10*6/uL (4.10-5.10); RED CELL DISTRI WIDTH 12.9 % (0-14.5); WHITE BLOOD COUNT 8.2 10*3/uL (4.8-10.8)
[2021-12-25 22:02] LABS: MANUAL DIFF REFLEX YES
[2021-12-25 22:17] LABS: CREATININE 2.46 mg/dL (0.55-1.02); POTASSIUM 3.4 mmol/L (3.5-5.1); TOTAL PROTEIN 6.7 gm/dL (6.4-8.2)
[2021-12-25 22:22] LABS: ATYPICAL LYMPHS 1 % (0-0); PLATELET SUFFICIENCY NORMAL (NORMAL); TOTAL CELLS COUNTED 100 #CELLS
[2021-12-25 22:43] LABS: BILIRUBIN Negative (Negative); BLOOD 3+ (Negative); CLARITY Turbid (Clear); COLOR Dark Yellow (Yellow); GLUCOSE Negative (Negative); KETONE Trace (Negative); LEUKO ESTERASE Trace (Negative); NITRITE Negative (Negative)
[2021-12-25 22:50] LABS: RBC 31-40 rbc/hpf (0-2)
[2021-12-26 01:36] LABS: ABG BASE EXCESS -4.7 mmol/L (-2.0-2.0); ARTERIAL BLOOD GAS PH 7.245 (7.35-7.45)
== END 2021-12-26 06:36 | disposition short-term general hospital (02) ==
LOC: ED 21:15
PROVIDERS: Emergency Medicine
DX: A41.9 Sepsis, unspecified organism (principal); R65.21 Severe sepsis with septic shock; N17.9 Acute kidney failure, unspecified; J96.01 Acute respiratory failure with hypoxia; K21.9 Gastro-esophageal reflux disease without esophagitis; E03.9 Hypothyroidism, unspecified; I25.10 Atherosclerotic heart disease of native coronary artery without angina pectoris; I48.91 Unspecified atrial fibrillation; J44.9 Chronic obstructive pulmonary disease, unspecified; E78.5 Hyperlipidemia, unspecified; M19.90 Unspecified osteoarthritis, unspecified site; I12.9 Hypertensive chronic kidney disease with stage 1 through stage 4 chronic kidney disease, or unspecified chronic kidney disease; N18.30 Chronic kidney disease, stage 3 unspecified; Z91.040 Latex allergy status; Z79.899 Other long term (current) drug therapy; Z79.82 Long term (current) use of aspirin; Z95.1 Presence of aortocoronary bypass graft; Z90.49 Acquired absence of other specified parts of digestive tract; Z98.890 Other specified postprocedural states; Z87.891 Personal history of nicotine dependence